=== PATIENT | female | born 1960 | race Caucasian/White ===

== ENCOUNTER 2017-04-23 09:28 | Day surgery (SDC) | payer BC ==
[~2017-04-23] VITALS: Ht 162.6 cm; Wt 66.0 kg
[2017-04-23 09:57] VITALS: BP 108/76
[2017-04-23] MEDS ORDERED: ADVIL PO (10:06)
[2017-04-23] MEDS ORDERED: QUET50TA5 PO (10:06)
[2017-04-23] MEDS ORDERED: HYDR-883 PO (10:06)
[2017-04-23] MEDS ORDERED: SENNA TEA PO (10:06)
[2017-04-23] MEDS: LACTATED RINGERS 1,000 ML IV SCH ×2 (10:19→10:26)
[2017-04-23] MEDS ORDERED: FENTANYL PF 250 MCG/5ML ONE (10:49)
[2017-04-23] MEDS ORDERED: MIDAZOLAM 1 MG/ML, 2ML ONE (10:49)
[2017-04-23] MEDS ORDERED: PROPOFOL 10 MG/ML, 20ML ONE (10:57)
[2017-04-23] MEDS ORDERED: ONDANSETRON 2MG/ML, 2ML ONE (10:57)
[2017-04-23] MEDS ORDERED: DEXAMETHASONE 4 MG/ML, 1ML ONE (10:57)
[2017-04-23] MEDS ORDERED: KETOROLAC 30 MG/1 ML ONE (10:57)
[2017-04-23] MEDS ORDERED: ACETAMINOPHEN 325 MG TABLET PO PRN (11:00)
[2017-04-23] MEDS ORDERED: HALOPERIDOL 5 MG/ML IV ONE (11:00)
[2017-04-23] MEDS ORDERED: METOPROLOL 1 MG/ML, 5ML IV PRN (11:00)
[2017-04-23] MEDS ORDERED: HYDROmorphone 1 MG/ML, 1ML IV PRN (11:00)
[2017-04-23] MEDS ORDERED: ALBUTEROL/IPRATROPIUM 2.5MG/0.5MG, 3 ML NPPB PRN (11:00)
[2017-04-23] MEDS ORDERED: hydrALAzine 20 MG/ML, 1ML IV PRN (11:00)
[2017-04-23] MEDS ORDERED: OXYcodone 5 MG/5 ML ORAL.SOL UDC PO PRN (11:00)
[2017-04-23] MEDS ORDERED: BUPIVACAINE/PF-EPI 0.5% 1:200K ONE (11:18)
[2017-04-23] MEDS ORDERED: BUPIVACAINE/PF-EPI 0.5% 1:200K INFIL ONE (11:21)
[2017-04-23] MEDS ORDERED: ACETAMINOPHEN 650 MG/20.3 ML UDC ONE (12:10)
[2017-04-23] MEDS ORDERED: FENTANYL PF 100 MCG/2ML ONE (12:11)
[2017-04-23] MEDS ORDERED: OXYcodone 5 MG/5 ML ORAL.SOL UDC ONE (12:11)
[2017-04-23] MEDS: FENTANYL PF 100 MCG/2ML IV PRN ×2 (12:14→12:23)
== END 2017-04-23 14:30 | disposition home or self-care (01) ==
LOC: OUT 09:28
PROVIDERS: ATTEND Orthopaedic Surgery
DX: S42.021A Displaced fracture of shaft of right clavicle, initial encounter for closed fracture (principal); V29.60XA Unspecified motorcycle rider injured in collision with unspecified motor vehicles in traffic accident, initial encounter; Y93.89 Activity, other specified; Y99.9 Unspecified external cause status; Y92.9 Unspecified place or not applicable
CPT/HCPCS: 23515; 36415; 73000; 76000; 85025; C1713; J1100; J1885; J2250; J2405; J2704; J3010; J7120

== ENCOUNTER 2017-12-19 15:27 | Emergency (ER) | payer BC ==
[~2017-12-19] VITALS: Ht 162.6 cm; Wt 68.9 kg
[~2017-12-19 15:27] MED LIST: ADVIL PO; HYDR-883 PO; QUET50TA5 PO; SENNA TEA PO
[2017-12-19] MEDS ORDERED: MORPHINE SULFATE 4 MG/ML, 1ML IVPush PRN (16:00)
[2017-12-19] MEDS ORDERED: SODIUM CHLORIDE 0.9% 1,000ML IVBOLUS ONE ×2 (16:00)
[2017-12-19] MEDS ORDERED: SODIUM CHLORIDE FLUSH 10ML SYR IVF ONE (16:00)
[2017-12-19] MEDS ORDERED: ONDANSETRON 2MG/ML, 2ML IVPush ONE (16:00)
[2017-12-19 16:07] LABS: BASOPHILS # (AUTO) 0.01 x10^3/uL (0-0.1); BASOPHILS % (AUTO) 0 % (0-1); EOSINOPHILS # (AUTO) 0.01 x10^3/uL (0-0.4); EOSINOPHILS % (AUTO) 0 % (1-7); LYMPHOCYTES # (AUTO) 0.55 x10^3/uL (1-3.4); LYMPHOCYTES % (AUTO) 6 % (22-44); MD NO; MEAN CORPUSCULAR HEMOGLOBIN 31.7 pg (27.0-34.8); MEAN CORPUSCULAR HGB CONC 34.1 g/dL (32.4-35.8); MEAN PLATELET VOLUME 9.8 fL (7.4-10.4); MONOCYTES # (AUTO) 0.72 x10^3/uL (0.2-0.8); MONOCYTES % (AUTO) 8 % (2-9); NEUTROPHILS # (AUTO) 8.26 x10^3/uL (1.8-6.8); NEUTROPHILS % (AUTO) 87 % (42-75); PLATELET COUNT 162 x10^3/uL (130-400); RED BLOOD COUNT 4.01 x10^6/uL (3.82-5.3)
[2017-12-19 16:14] LABS: ALANINE AMINOTRANSFERASE 52 U/L (12-78); ALBUMIN 3.4 g/dL (3.4-5.0); ANION GAP 7 mmol/L (5-15); CALCIUM 8.2 mg/dL (8.5-10.1); CHLORIDE 105 mmol/L (98-107); CREATININE 0.97 mg/dL (0.55-1.02)
[2017-12-19 16:19] LABS: ALKALINE PHOSPHATASE 89 U/L (45-117); BILIRUBIN,TOTAL 1.1 mg/dL (0.2-1.0)
[2017-12-19] MEDS ORDERED: OMNIPAQUE 350 MG/ML, 100ML BOTTLE ONE (17:01)
[2017-12-19 18:22] VITALS: BP 99/65
[2017-12-19 18:32] LABS: CULTURE INDICATED? YES; MICROSCOPIC INDICATED
== END 2017-12-19 18:24 | disposition home or self-care (01) ==
LOC: ED 16:28
DX: K59.00 Constipation, unspecified (principal)
CPT/HCPCS: 36415; 74177; 80053; 81001; 83605; 83690; 85025; 87040; 87077; 87086; 93005; 96360; 99285; J7030; Q9967; 87186

== ENCOUNTER 2017-12-20 08:03 | Inpatient (IN) | payer BC ==
[~2017-12-20] VITALS: Ht 163.8 cm; Wt 79.9 kg
[2017-12-20] MEDS ORDERED: SODIUM CHLORIDE FLUSH 10ML SYR IVF ONE (08:30)
[2017-12-20] MEDS ORDERED: CEFTRIAXONE PMX 1GM/50ML 50 ML IVPB ONE (08:30)
[2017-12-20] MEDS ORDERED: SODIUM CHLORIDE 0.9% 1,000ML IVBOLUS ONE ×2 (08:30→10:30)
[2017-12-20 08:48] LABS: MEAN CORPUSCULAR HEMOGLOBIN 31.1 pg (27.0-34.8); MEAN CORPUSCULAR HGB CONC 33.6 g/dL (32.4-35.8); MEAN CORPUSCULAR VOLUME 92.7 fL (80-100); MEAN PLATELET VOLUME 10.3 fL (7.4-10.4); PLATELET COUNT 146 x10^3/uL (130-400); RED BLOOD COUNT 3.76 x10^6/uL (3.82-5.3)
[2017-12-20] MEDS ORDERED: CEFTRIAXONE PMX 1GM/50ML 50 ML ONE (08:51)
[2017-12-20 08:58] LABS: ALBUMIN 3.1 g/dL (3.4-5.0); ANION GAP 5 mmol/L (5-15); CALCIUM 7.9 mg/dL (8.5-10.1); CHLORIDE 107 mmol/L (98-107); CREATININE 0.99 mg/dL (0.55-1.02)
[2017-12-20 09:04] LABS: MD YES
[2017-12-20 09:08] LABS: MICROSCOPIC AUTO
[2017-12-20 09:09] LABS: <PLATELET ESTIMATE> ADEQUATE; <RBC MORPHOLOGY> NORMAL; BAND#(MANUAL) 2.77 x10^3/uL; BANDS%(MANUAL) 21 % (0-7); EOS% (MANUAL) 3 % (1-7); LARGE PLATELETS 1+; LYMPH#(MANUAL) 1.19 x10^3/uL (1-3.4); LYMPHS% (MANUAL) 9 % (22-44); MONOS#(MANUAL) 0.79 x10^3/uL (0.3-2.7); MONOS% (MANUAL) 6 % (2-9); SEG#(MANUAL) 8.05 x10^3/uL (1.8-6.8); SEGS% (MANUAL) 61 % (42-75)
[2017-12-20 09:17] LABS: CULTURE INDICATED? YES
[2017-12-20 10:20] VITALS: BP 91/60
[2017-12-20] MEDS ORDERED: LABETALOL 5MG/ML, 20ML IVPush PRN (10:30)
[2017-12-20] MEDS ORDERED: CEFTRIAXONE PMX 1GM/50ML 50 ML IV ONE (10:30)
[2017-12-20] MEDS ORDERED: GUAIFENESIN/DM 200-20MG, 10ML UDC PO PRN (10:30)
[2017-12-20] MEDS ORDERED: ONDANSETRON 2MG/ML, 2ML IVPush PRN (10:30)
[2017-12-20] MEDS ORDERED: ONDANSETRON ODT 4 MG PO PRN (10:30)
[2017-12-20] MEDS ORDERED: PIPERACILLIN/TAZO/PMX 3.375GM 50 ML IV SCH (11:00)
[2017-12-20 11:30] LABS: INTERNATIONAL NORMALIZED RATIO 1.15 (0.93-1.1); PROTHROMBIN TIME 11.9 Seconds (9.6-11.5)
[2017-12-20] MEDS: ENOXAPARIN 40 MG/0.4 ML SQ SCH (12:12)
[2017-12-20] MEDS: SODIUM CHLORIDE 0.9% 1,000 ML IV SCH ×2 (12:13→20:08)
[2017-12-20] MEDS: morphine SULFATE 10 MG/ML, 1ML IVPush PRN ×2 (12:45→20:18)
[2017-12-20 12:49] VITALS: BP 110/73
[2017-12-20 13:00] VITALS: BP 95/63
[2017-12-20] MEDS: ACETAMINOPHEN 325 MG TABLET PO PRN ×2 (13:12→20:18)
[2017-12-20 16:10] VITALS: BP 80/41
[2017-12-20] MEDS ORDERED: SODIUM CHLORIDE 0.9%, 500ML IVBOLUS ONE (17:00)
[2017-12-20 18:38] VITALS: BP 84/53
[2017-12-20] MEDS ORDERED: CEFTRIAXONE 1,000 MG in SODIUM CHLORIDE 0.9% 50 ML IV SCH (19:00)
[2017-12-20] MEDS ORDERED: NOREPINEPHRINE 4 MG in SODIUM CHLORIDE 0.9% 246 ML IV PRN (19:00)
[2017-12-20] MEDS ORDERED: CEFTRIAXONE PMX 1GM/50ML 50 ML IV SCH (19:00)
[2017-12-20 19:20] VITALS: BP 95/62
[2017-12-20] MEDS: QUETIAPINE 25MG TABLET PO SCH (21:00)
[2017-12-20] MEDS: SODIUM CHLORIDE 0.9%, 500ML IVBOLUS PRN ×2 (22:12→23:51)
[2017-12-21 04:25] LABS: ALANINE AMINOTRANSFERASE 32 U/L (12-78); ALBUMIN 2.2 g/dL (3.4-5.0); ANION GAP 8 mmol/L (5-15); CALCIUM 7.2 mg/dL (8.5-10.1); CHLORIDE 112 mmol/L (98-107); CREATININE 0.84 mg/dL (0.55-1.02)
[2017-12-21 04:27] LABS: ALKALINE PHOSPHATASE 96 U/L (45-117); BILIRUBIN,TOTAL 0.4 mg/dL (0.2-1.0); TOTAL PROTEIN 5.4 g/dL (6.4-8.2)
[2017-12-21 04:31] LABS: BASOPHILS % (AUTO) 0 % (0-1); EOSINOPHILS # (AUTO) 0.09 x10^3/uL (0-0.4); EOSINOPHILS % (AUTO) 1 % (1-7); LYMPHOCYTES # (AUTO) 0.58 x10^3/uL (1-3.4); LYMPHOCYTES % (AUTO) 7 % (22-44); MD NO; MEAN CORPUSCULAR HEMOGLOBIN 31.8 pg (27.0-34.8); MEAN CORPUSCULAR HGB CONC 33.8 g/dL (32.4-35.8); MEAN PLATELET VOLUME 10.6 fL (7.4-10.4); MONOCYTES % (AUTO) 6 % (2-9); NEUTROPHILS # (AUTO) 6.94 x10^3/uL (1.8-6.8); NEUTROPHILS % (AUTO) 86 % (42-75); PLATELET COUNT 100 x10^3/uL (130-400); RED BLOOD COUNT 3.13 x10^6/uL (3.82-5.3); RED CELL DISTRIBUTION WIDTH 13.5 % (9.6-15.2)
[2017-12-21] MEDS: morphine SULFATE 10 MG/ML, 1ML IVPush PRN ×3 (07:12→20:14)
[2017-12-21] MEDS: ACETAMINOPHEN 325 MG TABLET PO PRN ×2 (07:12→14:28)
[2017-12-21] MEDS: SODIUM CHLORIDE 0.9% 1,000 ML IV SCH ×2 (10:15→20:05)
[2017-12-21] MEDS: SENNA/DOCUSATE TABLET PO SCH (10:16)
[2017-12-21] MEDS ORDERED: CEFTRIAXONE PMX 2GM/50ML 50 ML IV SCH (11:00)
[2017-12-21] MEDS ORDERED: MAGNESIUM SULFATE PMX 2GM/50ML 50 ML IV ONE (13:00)
[2017-12-21] MEDS: ENOXAPARIN 40 MG/0.4 ML SQ SCH (13:08)
[2017-12-21] MEDS ORDERED: CEFTRIAXONE 1,000 MG in SODIUM CHLORIDE 0.9% 50 ML IV ONE ×2 (13:30)
[2017-12-21 15:45] VITALS: BP 95/61
[2017-12-21 19:47] VITALS: BP 113/74
[2017-12-21] MEDS: CEFTRIAXONE 2 GM in SODIUM CHLORIDE 0.9% 50 ML IV SCH (20:05)
[2017-12-21] MEDS: QUETIAPINE 25MG TABLET PO SCH (20:05)
[2017-12-22] MEDS: ACETAMINOPHEN 325 MG TABLET PO PRN ×3 (01:01→23:12)
[2017-12-22] MEDS: morphine SULFATE 10 MG/ML, 1ML IVPush PRN ×3 (01:01→23:16)
[2017-12-22 01:28] VITALS: BP 110/65
[2017-12-22] MEDS: SODIUM CHLORIDE 0.9% 1,000 ML IV SCH ×2 (03:52→11:40)
[2017-12-22 05:30] LABS: MEAN CORPUSCULAR HEMOGLOBIN 31.2 pg (27.0-34.8); MEAN CORPUSCULAR HGB CONC 33.3 g/dL (32.4-35.8); MEAN CORPUSCULAR VOLUME 93.8 fL (80-100); MEAN PLATELET VOLUME 10.8 fL (7.4-10.4); PLATELET COUNT 104 x10^3/uL (130-400); RED BLOOD COUNT 3.08 x10^6/uL (3.82-5.3); RED CELL DISTRIBUTION WIDTH 13.7 % (9.6-15.2)
[2017-12-22 05:37] LABS: CHLORIDE 111 mmol/L (98-107)
[2017-12-22 05:40] LABS: ALANINE AMINOTRANSFERASE 32 U/L (12-78); ALBUMIN 2.1 g/dL (3.4-5.0); ALKALINE PHOSPHATASE 112 U/L (45-117); ANION GAP 4 mmol/L (5-15); BILIRUBIN,TOTAL 0.3 mg/dL (0.2-1.0); CALCIUM 7.5 mg/dL (8.5-10.1); TOTAL PROTEIN 5.2 g/dL (6.4-8.2)
[2017-12-22 06:15] LABS: BASOPHILS # (AUTO) 0.01 x10^3/uL (0-0.1); BASOPHILS % (AUTO) 0 % (0-1); EOSINOPHILS # (AUTO) 0.02 x10^3/uL (0-0.4); EOSINOPHILS % (AUTO) 1 % (1-7); LYMPHOCYTES # (AUTO) 0.52 x10^3/uL (1-3.4); LYMPHOCYTES % (AUTO) 18 % (22-44); MD SCAN; MONOCYTES # (AUTO) 0.11 x10^3/uL (0.2-0.8); MONOCYTES % (AUTO) 4 % (2-9); NEUTROPHILS # (AUTO) 2.22 x10^3/uL (1.8-6.8); NEUTROPHILS % (AUTO) 77 % (42-75)
[2017-12-22 07:22] VITALS: BP 96/63
[2017-12-22] MEDS: SENNA/DOCUSATE TABLET PO SCH (08:30)
[2017-12-22] MEDS ORDERED: SODIUM PHOSPHATE 30 MMOL in SODIUM CHLORIDE 0.9% 500 ML IV ONE (11:30)
[2017-12-22] MEDS ORDERED: SODIUM PHOSPHATE 4 MEQ/ML IV SCH (11:30)
[2017-12-22 13:32] VITALS: BP 96/63
[2017-12-22] MEDS: ENOXAPARIN 40 MG/0.4 ML SQ SCH (14:13)
[2017-12-22 19:07] VITALS: BP 106/68
[2017-12-22] MEDS: CEFTRIAXONE 2 GM in SODIUM CHLORIDE 0.9% 50 ML IV SCH (20:03)
[2017-12-22] MEDS: QUETIAPINE 25MG TABLET PO SCH (20:03)
[2017-12-23 02:14] VITALS: BP 102/64
[2017-12-23] MEDS: SODIUM CHLORIDE 0.9% 1,000 ML IV SCH (02:24)
[2017-12-23 05:18] LABS: BASOPHILS # (AUTO) 0.02 x10^3/uL (0-0.1); BASOPHILS % (AUTO) 0 % (0-1); EOSINOPHILS # (AUTO) 0.07 x10^3/uL (0-0.4); EOSINOPHILS % (AUTO) 2 % (1-7); LYMPHOCYTES # (AUTO) 0.87 x10^3/uL (1-3.4); LYMPHOCYTES % (AUTO) 24 % (22-44); MD NO; MEAN CORPUSCULAR HEMOGLOBIN 31.6 pg (27.0-34.8); MEAN CORPUSCULAR VOLUME 92.9 fL (80-100); MEAN PLATELET VOLUME 10.3 fL (7.4-10.4); MONOCYTES # (AUTO) 0.44 x10^3/uL (0.2-0.8); MONOCYTES % (AUTO) 12 % (2-9); NEUTROPHILS % (AUTO) 61 % (42-75); PLATELET COUNT 117 x10^3/uL (130-400); RED BLOOD COUNT 2.99 x10^6/uL (3.82-5.3); RED CELL DISTRIBUTION WIDTH 13.5 % (9.6-15.2)
[2017-12-23 05:28] LABS: ALANINE AMINOTRANSFERASE 50 U/L (12-78); ANION GAP 6 mmol/L (5-15); CALCIUM 7.4 mg/dL (8.5-10.1); CHLORIDE 112 mmol/L (98-107); CREATININE 0.76 mg/dL (0.55-1.02)
[2017-12-23 05:31] LABS: ALKALINE PHOSPHATASE 210 U/L (45-117); BILIRUBIN,TOTAL 0.3 mg/dL (0.2-1.0); TOTAL PROTEIN 5.2 g/dL (6.4-8.2)
[2017-12-23 06:53] VITALS: BP 110/67
[2017-12-23] MEDS: POLYETHYLENE GLYCOL 17 GM PACKET PO PRN (08:09)
[2017-12-23] MEDS: SENNA/DOCUSATE TABLET PO SCH (08:09)
[2017-12-23] MEDS: ACETAMINOPHEN 325 MG TABLET PO PRN ×2 (08:58→18:16)
[2017-12-23 13:49] VITALS: BP 106/63
[2017-12-23] MEDS ORDERED: FUROSEMIDE 20 MG/2 ML IV ONE (15:00)
[2017-12-23] MEDS: ENOXAPARIN 40 MG/0.4 ML SQ SCH (15:59)
[2017-12-23 18:56] VITALS: BP 104/65
[2017-12-23] MEDS: QUETIAPINE 25MG TABLET PO SCH (20:42)
[2017-12-23] MEDS: CEFTRIAXONE 2 GM in SODIUM CHLORIDE 0.9% 50 ML IV SCH (20:43)
[2017-12-23 20:49] VITALS: BP 100/64
[2017-12-24 01:32] VITALS: BP 113/74
[2017-12-24 05:37] LABS: CHLORIDE 109 mmol/L (98-107)
[2017-12-24 05:42] LABS: ANION GAP 8 mmol/L (5-15); CALCIUM 7.8 mg/dL (8.5-10.1); CREATININE 0.68 mg/dL (0.55-1.02)
[2017-12-24 05:52] LABS: BASOPHILS # (AUTO) 0.02 x10^3/uL (0-0.1); BASOPHILS % (AUTO) 1 % (0-1); EOSINOPHILS # (AUTO) 0.11 x10^3/uL (0-0.4); EOSINOPHILS % (AUTO) 2 % (1-7); LYMPHOCYTES # (AUTO) 0.99 x10^3/uL (1-3.4); LYMPHOCYTES % (AUTO) 19 % (22-44); MD NO; MEAN CORPUSCULAR HEMOGLOBIN 31.8 pg (27.0-34.8); MEAN CORPUSCULAR HGB CONC 34.5 g/dL (32.4-35.8); MEAN CORPUSCULAR VOLUME 92.2 fL (80-100); MEAN PLATELET VOLUME 9.6 fL (7.4-10.4); MONOCYTES # (AUTO) 0.71 x10^3/uL (0.2-0.8); MONOCYTES % (AUTO) 14 % (2-9); NEUTROPHILS # (AUTO) 3.41 x10^3/uL (1.8-6.8); NEUTROPHILS % (AUTO) 65 % (42-75); PLATELET COUNT 152 x10^3/uL (130-400); RED BLOOD COUNT 2.79 x10^6/uL (3.82-5.3); RED CELL DISTRIBUTION WIDTH 13.5 % (9.6-15.2)
[2017-12-24] MEDS ORDERED: POTASSIUM CHLORIDE 20 MEQ TAB.ER.PRT PO ONE (06:30)
[2017-12-24] MEDS: POLYETHYLENE GLYCOL 17 GM PACKET PO PRN (07:42)
[2017-12-24 07:57] VITALS: BP 95/57
[2017-12-24] MEDS: ACETAMINOPHEN 325 MG TABLET PO PRN (09:47)
[2017-12-24] MEDS: SENNA/DOCUSATE TABLET PO SCH (09:47)
[2017-12-24] MEDS ORDERED: CEFTRIAXONE 2 GM in SODIUM CHLORIDE 0.9% 50 ML IV SCH (12:00)
[2017-12-24] MEDS ORDERED: FUROSEMIDE 20 MG/2 ML IV ONE (12:30)
[2017-12-24] MEDS ORDERED: LEVO750T6 PO (12:35)
[2017-12-24 12:43] VITALS: BP 99/63
[2017-12-24] MEDS: ENOXAPARIN 40 MG/0.4 ML SQ SCH (13:47)
== END 2017-12-24 16:51 | disposition home or self-care (01) | DRG 871 ==
LOC: ED 09:06 → EDIP 09:24 → 3NW 10:13 → CCU 19:44 → 3NE 12-21 15:28
PROVIDERS: ADMIT Hospitalist; ATTEND Hospitalist
PROC: 0T9B70Z Drainage of Bladder with Drainage Device, Via Natural or Artificial Opening (ICD-10-PCS; principal; 2017-12-20)
DX: A41.9 Sepsis, unspecified organism (principal); E43 Unspecified severe protein-calorie malnutrition; N30.90 Cystitis, unspecified without hematuria; E83.39 Other disorders of phosphorus metabolism; E83.42 Hypomagnesemia; F32.9 Major depressive disorder, single episode, unspecified; F41.9 Anxiety disorder, unspecified; K59.00 Constipation, unspecified; B96.20 Unspecified Escherichia coli [E. coli] as the cause of diseases classified elsewhere; K52.9 Noninfective gastroenteritis and colitis, unspecified; K63.89 Other specified diseases of intestine; R65.20 Severe sepsis without septic shock; R73.9 Hyperglycemia, unspecified; Z68.29 Body mass index [BMI] 29.0-29.9, adult; Z86.010 Personal history of colon polyps
CPT/HCPCS: 36415; 71045; 80048; 80053; 81001; 82040; 83605; 83735; 84100; 84145; 84439; 85025; 85610; 87040; 87081; 87086; 96365; J0696; J1650; J2405; J2543; J1940; J2270; J3475; J7030; J7040

== ENCOUNTER 2017-12-25 03:40 | Emergency (ER) | payer BC ==
[~2017-12-25] VITALS: Ht 162.6 cm; Wt 73.0 kg
[~2017-12-25 03:40] MED LIST changes: +LEVO750T6 PO
[2017-12-25 04:37] LABS: CHLORIDE 107 mmol/L (98-107)
[2017-12-25 04:39] LABS: BASOPHILS # (AUTO) 0.01 x10^3/uL (0-0.1); BASOPHILS % (AUTO) 0 % (0-1); EOSINOPHILS # (AUTO) 0.09 x10^3/uL (0-0.4); EOSINOPHILS % (AUTO) 1 % (1-7); LYMPHOCYTES # (AUTO) 1.48 x10^3/uL (1-3.4); LYMPHOCYTES % (AUTO) 22 % (22-44); MD NO; MEAN CORPUSCULAR HEMOGLOBIN 31.5 pg (27.0-34.8); MEAN CORPUSCULAR HGB CONC 34.3 g/dL (32.4-35.8); MEAN PLATELET VOLUME 9.1 fL (7.4-10.4); MONOCYTES # (AUTO) 0.93 x10^3/uL (0.2-0.8); MONOCYTES % (AUTO) 14 % (2-9); NEUTROPHILS # (AUTO) 4.26 x10^3/uL (1.8-6.8); NEUTROPHILS % (AUTO) 63 % (42-75); PLATELET COUNT 236 x10^3/uL (130-400); RED BLOOD COUNT 3.04 x10^6/uL (3.82-5.3)
[2017-12-25 04:52] LABS: ALANINE AMINOTRANSFERASE 69 U/L (12-78); ALBUMIN 2.4 g/dL (3.4-5.0); ALKALINE PHOSPHATASE 264 U/L (45-117); BILIRUBIN,TOTAL 0.5 mg/dL (0.2-1.0); TOTAL PROTEIN 6.4 g/dL (6.4-8.2)
[2017-12-25 05:09] LABS: ANION GAP 7 mmol/L (5-15)
[2017-12-25 05:16] LABS: TROPONIN I < 0.015 ng/mL (0.000-0.045)
[2017-12-25] MEDS ORDERED: ACETAMINOPHEN 325 MG TABLET ONE (05:17)
[2017-12-25] MEDS ORDERED: ACETAMINOPHEN 325 MG TABLET PO ONE (05:30)
[2017-12-25] MEDS ORDERED: BENZONATATE 100 MG CAPSULE PO ONE (05:30)
[2017-12-25] MEDS ORDERED: FUROSEMIDE 20 MG/2 ML IV ONE (06:00)
[2017-12-25] MEDS ORDERED: FUROSEMIDE 20 MG/2 ML ONE (06:02)
[2017-12-25 06:11] VITALS: BP 106/61
== END 2017-12-25 08:15 | disposition home or self-care (01) ==
LOC: ED 04:47
DX: J81.1 Chronic pulmonary edema (principal); E87.70 Fluid overload, unspecified
CPT/HCPCS: 36415; 71046; 80053; 83880; 84484; 85025; 93005; 96374; 99285; J1940